=== PATIENT | male | born 1975 | race Caucasian/White ===

== ENCOUNTER 2016-11-02 17:27 | Emergency (ER) | payer MEDICAID ==
[~2016-11-02] VITALS: Ht 167.6 cm; Wt 67.5 kg
[~2016-11-02 17:27] MED LIST: BACTDS PO; HYDR-3504 PO; LEVO500T72 PO
[2016-11-02 17:33] VITALS: Ht 167.6 cm; Wt 67.5 kg
[2016-11-02] MEDS ORDERED: IBUPROFEN 800 MG TAB PO ONE (19:30)
--- NOTE | 2016-11-02 19:38 | ERD ---
ER Documentation Chief Complaint Date/Time DATE: 11/02/16 TIME: 19:36 Chief Complaint LEFT HAND PAIN X 2 DAYS HPI 41-year-old male comes to the emergency room, [id number] complaining of atraumatic left hand pain for the past 2 days. Patient's pain starts in the left tendon is generalized described as achy and constant and radiates to his left upper extremity. He denies any trauma air to the area, fevers or chills. He denies paresthesias or difficulty moving or weakness to the upper left extremity. He has no chest pain, no shortness of breath. ROS All systems reviewed and are negative except as per history of present illness. Medications Home Meds Active Scripts Naproxen* (Naprosyn*) 500 Mg Tablet, 500 MG PO BID Y for PAIN AND/OR INFLAMMATION, #30 TAB Prov:SAÚL MANZANO PA-C 11/02/16 Sulfamethoxazole-Trimethoprim* (Bactrim* DS) 800-160 Mg Tab, 1 TAB PO BID for 10 Days, TAB Prov:SILAS VALERIO MD 11/11/14 Levofloxacin* (Levaquin*) 500 Mg Tab, 500 MG PO DAILY@06 for 10 Days, TAB Prov:SILAS VALERIO MD 11/11/14 Hydrocodone Bit-Acetaminophen (Hydrocodone-APAP) 1 Tab Tab, 1 TAB PO Q6H Y for PAIN for 7 Days Prov:SILAS VALERIO MD 11/11/14 Allergies Allergies: Coded Allergies: No Known Drug Allergies (Verified Allergy, Mild, 11/23/14) PMhx/Soc Medical and Surgical Hx: pt denies Medical Hx, pt denies Surgical Hx History of Surgery: No Anesthesia Reaction: No Hx Neurological Disorder: No Hx Respiratory Disorders: No Hx Cardiac Disorders: No Hx Psychiatric Problems: No Hx Miscellaneous Medical Probl: No Hx Alcohol Use: No Hx Substance Use: No Hx Tobacco Use: Yes Smoking Status: Current some day smoker Physical Exam Vitals Vital Signs Date Time Temp Pulse Resp B/P Pulse Ox O2 Delivery O2 Flow Rate FiO2 11/02/16 17:33 98.5 76 18 131/74 99 Physical Exam \General: Well-developed, well-nourished. The patient appears in no acute distress. HEENT: Head is normocephalic, atraumatic. No scleral icterus. Neck: Supple. Nontender. Lungs: Clear to auscultation. Normal air movement. Heart: Regular rate and rhythm. S1 and S2 are normal. No murmurs, gallops, or rubs. Abdomen: Soft, nontender, nondistended. Bowel sounds are normoactive. Extremities: No bony deformities, full range of motion at DIP, PIP and MCP joints to all digits of the left hand. Radian, ulnar, median nerve intact bilaterally. Capillary refill less than 2 seconds. No ecchymosis, no erythema , no warmth, no skin changes. Neurologic: Alert and oriented 3. No focal deficits. Skin: Normal turgor. No rash or lesions. Results 24 hrs Current Medications Medications (Trade) Dose Ordered Sig/Papo Route PRN Reason Start Time Stop Time Status Last Admin Dose Admin Ibuprofen (Motrin) 800 mg ONCE ONCE PO 11/02/16 19:30 11/02/16 19:31 DC 11/02/16 19:28 PROCEDURE: XR, left hand. CLINICAL INDICATION: Pain. TECHNIQUE: Three views of the hand were obtained. COMPARISON: None available. FINDINGS: The bones of the hand appear intact, with no evidence of fracture, dislocation, para-articular bony erosion, or subluxation. The joint spaces are preserved. Bone mineralization is normal. No significant soft tissue swelling is seen. IMPRESSION: 1. Unremarkable hand x-ray series. RPTAT: GG .Homero Starkey MD, Date Time Electronically viewed and signed by .Homero Starkey MD, on 11/02/2016 20:00 .Y/ CC: SAÚL MANZANO PA-C Procedures/MDM ED course: Patient was given Motrin for pain. EKG: Dr Osei Rate/Rhythm: Normal Sinus Rhythm rate of 76 QRS, ST, T-waves: No changes consistent w/ acute ischemia Impression: No evidence of ischemia or arrhythmia MDM: 41-year-old male comes in with left hand pain, x-rays of the left hand are unremarkable. Patient differentials include tendinitis, carpal tunnel syndrome , neuropraxia, fracture, subluxation, septic joint, gout. Suspicion for pulmonary embolus, dissection and acute coronary syndrome are low. Patient's hand pain is radiating to the left upper extremity, likely from tendinitis versus a sprain. Patient's pain is likely musculoskeletal injury, I have low suspicion for any cardiac origin at this time. Departure Diagnosis: Primary Impression: Pain of hand Condition: Good SAÚL MANZANO PA-C Nov 02, 2016 19:38
--- NOTE | 2016-11-02 20:00 | RADRPT ---
PROCEDURE: XR, left hand. CLINICAL INDICATION: Pain. TECHNIQUE: Three views of the hand were obtained. COMPARISON: None available. FINDINGS: The bones of the hand appear intact, with no evidence of fracture, dislocation, para-articular bony erosion, or subluxation. The joint spaces are preserved. Bone mineralization is normal. No signif icant soft tissue swelling is seen. IMPRESSION: 1. Unremarkable hand x-ray series. RPTAT: GG .Homero Starkey MD, MD Date Time Electronically viewed and signed by .Homero Starkey MD, MD on 11/02/2016 20:00 .Y/
[2016-11-02] MEDS ORDERED: NAPR-260 PO (20:06)
== END 2016-11-02 20:12 | disposition home or self-care (01) ==
LOC: FTE 17:27
DX: M79.642 Pain in left hand (principal); F17.210 Nicotine dependence, cigarettes, uncomplicated
CPT/HCPCS: 73130; 93005; Z7502; Z7610